=== PATIENT | female | born 1955 | race Caucasian/White ===

== ENCOUNTER 2018-07-07 10:11 | Day surgery (SDC) | payer MEDICARE, BC ==
[2018-07-05 11:32] LABS: CLARITY,URINE CLEAR (Clear); COLOR,URINE STRAW (Yellow); GLUCOSE, URINE NEGATIVE (Neg); KETONES,URINE NEGATIVE (Neg); LEUKOCYTE ESTERASE ,URINE SMALL (Neg); NITRITES, URINE NEGATIVE (Neg); OCCULT BLOOD,URINE NEGATIVE (Neg); PROTEIN,URINE NEGATIVE (Neg); UROBILINOGEN,URINE 0.2 E.U/dL (0.2-1.0)
[2018-07-05 11:39] LABS: UA COLLECTION TYPE CLN CATCH MIDSTREAM
[2018-07-05 11:41] LABS: PRE OP INR 0.9 INR; PRE OP PROTIME 9.2 SECONDS (9.0-12.0)
[2018-07-05 11:44] LABS: BASOPHILS # (AUTO) 0.1 X10'3 (0-0.2); BASOPHILS % (AUTO) 0.6 % (0-1); EOSINOPHILS # (AUTO) 0.4 X10'3 (0-0.9); EOSINOPHILS % (AUTO) 3.7 % (0-6); LYMPHOCYTES # (AUTO) 1.1 X10'3 (1.1-4.8); LYMPHOCYTES % (AUTO) 11.5 % (21-51); MEAN CORPUSCULAR HEMOGLOBIN 28.4 PG (27.0-31.0); MEAN CORPUSCULAR HGB CONC 33.5 % (33.0-36.5); MEAN CORPUSCULAR VOLUME 84.8 FL (78-98); MEAN PLATELET VOLUME 7.6 FL (7.4-10.4); MONOCYTES # (AUTO) 0.7 X10'3 (0-0.9); MONOCYTES % (AUTO) 7.3 % (2-12); NEUTROPHILS # (AUTO) 7.5 X10'3 (1.8-7.7); NEUTROPHILS % (AUTO) 76.9 % (42-75); PRE OP HEMATOCRIT 32.3 % (35.0-45.0); PRE OP PLATELET COUNT 197 X10'3 (140-440); RED CELL DISTRIBUTION WIDTH 15.4 % (11.5-14.5)
[2018-07-05 11:46] LABS: BACTERIA,URINE NONE SEEN /HPF (Neg); RBC,URINE NONE SEEN /HPF (0-2); SQUAMOUS EPITHELIAL CELL,UR FEW /LPF (FEW)
[2018-07-05 11:49] LABS: ALBUMIN 3.6 G/DL (3.4-5.0); ALBUMIN/GLOBULIN RATIO 0.9 (1.1-1.5); ALKALINE PHOSPHATASE 144 IU/L (46-116); BLOOD UREA NITROGEN 49 MG/DL (7-18); BUN/CREATININE RATIO 24.4 (6.6-38.0); CALCIUM 8.6 MG/DL (8.5-10.1); CHLORIDE 104 MMOL/L (99-107); CREATININE 2.01 MG/DL (0.40-0.90); PRE OP ALT 21 U/L (30-65); PRE OP ANION GAP 9 (8-16); PRE OP AST 14 U/L (10-37); PRE OP BILIRUB, TOTAL 0.3 MG/DL (0.0-1.0); PRE OP GLUCOSE 70 MG/DL (70-104); PRE OP POTASSIUM 4.3 MMOL/L (3.4-5.1); PRE OP SODIUM 141 MMOL/L (135-145); TOTAL CARBON DIOXIDE 27.6 MMOL/L (24-32); TOTAL PROTEIN 7.6 G/DL (6.4-8.2); eGFR 25 ML/MIN
[2018-07-05 11:51] LABS: PRE OP HEMOGLOBIN 10.8 g/dL (12.0-16.0)
[~2018-07-07] VITALS: Ht 167.6 cm; Wt 127.5 kg
[~2018-07-07 10:11] MED LIST: ASPI-845 PO; DOCUMENT DATE & TIME OF BETA-BLOCKER PO ONE; FURO80TA3 PO; LABE300T2 PO; LOSA100T15 PO; POTA8TAB8 PO; [UNRECOGNIZED DRUG - CODE] PO; ceFAZolin 2gm in dextrose, iso 100 ML IV ONE; cefazolin/dext.iso 2gm/100 ML IV ONE; famotidine 20mg tablet PO ONE; ringers solution, lacted 1,000 ML IV SCH
[2018-07-07 10:30] VITALS: BP 158/92
[2018-07-07] MEDS ORDERED: labetalol 100mg tablet PO ONE (10:40)
[2018-07-07] MEDS ORDERED: clindamycin phosphate 150mg/ml inj. ONE (11:55)
[2018-07-07] MEDS ORDERED: gentamicin 40 MG/1 ML inj ONE ×2 (11:55→12:22)
[2018-07-07] MEDS ORDERED: succinylcholine 20mg/ml inj IV ONE (12:24)
[2018-07-07] MEDS ORDERED: sevoflurane 250ml liquid IH ONE (12:24)
[2018-07-07] MEDS ORDERED: propofol 10mg/ml 20ml vial IV ONE (12:24)
[2018-07-07] MEDS ORDERED: fentaNYL/PF 50MCG/1 ML 2ML syringe ONE (12:40)
[2018-07-07] MEDS ORDERED: midazolam 2 mg/2 ml injection ONE (12:41)
[2018-07-07] MEDS ORDERED: LIDOcaine 2% (20mg/ml) 5ml vial ONE (12:52)
[2018-07-07] MEDS ORDERED: propofol inj 20 ML IV ONE (12:52)
[2018-07-07] MEDS ORDERED: rocuronium 10mg/ml inj IV ONE (12:52)
[2018-07-07] MEDS ORDERED: dexamethasone sod phosphate 4mg/ml inj. ONE (12:52)
[2018-07-07] MEDS ORDERED: BUPIVAcaine/PF 2.5mg/ml (0.25%) 10ml vial ONE (13:15)
[2018-07-07 13:28] VITALS: BP 98/56
[2018-07-07] MEDS ORDERED: morphine 4 MG/ML inj SYRINge ONE (13:30)
[2018-07-07] MEDS ORDERED: albuterol 2.5 MG/3 ML nebule NEB ONE (13:35)
[2018-07-07] MEDS ORDERED: ringers solution, lacted 1,000 ML IV SCH (13:37)
[2018-07-07 13:38] VITALS: BP 97/40
[2018-07-07] MEDS ORDERED: morphine 4 MG/ML inj SYRINge IV PRN (13:40)
[2018-07-07] MEDS ORDERED: ondansetron/PF 4mg/2ml inj IV PRN (13:40)
[2018-07-07] MEDS ORDERED: ipratropium/albuterol 3ml nebule ONE (13:42)
[2018-07-07] MEDS ORDERED: neostigmine methylsulfate 1 MG/ML 10ml vial ONE (13:45)
[2018-07-07] MEDS ORDERED: ondansetron/PF 4mg/2ml inj ONE (13:45)
[2018-07-07] MEDS ORDERED: glycopyrrolate 0.2mg/ml inj ONE (13:45)
[2018-07-07 13:48] VITALS: BP 91/66
[2018-07-07 13:58] VITALS: BP 151/84
[2018-07-07 14:08] VITALS: BP 142/57
[2018-07-07] MEDS ORDERED: ipratropium/albuterol 3ml nebule NEB ONE (16:00)
== END 2018-07-07 14:18 | disposition home or self-care (01) ==
LOC: PAS 10:11
PROVIDERS: ATTEND Surgery
DX: T81.4XXA Infection following a procedure, initial encounter (principal); L92.8 Other granulomatous disorders of the skin and subcutaneous tissue; F17.210 Nicotine dependence, cigarettes, uncomplicated; Z98.890 Other specified postprocedural states; I10 Essential (primary) hypertension; E78.2 Mixed hyperlipidemia; E66.9 Obesity, unspecified; Z68.42 Body mass index [BMI] 45.0-49.9, adult; Z90.49 Acquired absence of other specified parts of digestive tract; Z90.710 Acquired absence of both cervix and uterus; E89.0 Postprocedural hypothyroidism; Z79.01 Long term (current) use of anticoagulants; Z91.018 Allergy to other foods; Z88.5 Allergy status to narcotic agent; Z88.8 Allergy status to other drugs, medicaments and biological substances; Y83.8 Other surgical procedures as the cause of abnormal reaction of the patient, or of later complication, without mention of misadventure at the time of the procedure; Y92.89 Other specified places as the place of occurrence of the external cause
CPT/HCPCS: 11402; 36415; 71046; 80053; 81001; 85025; 85610; 85730; 87070; 87075; 87077; 87088; 87186; 93005; 94640; 94760; A6449; J0330; J0690; J1100; J1580; J2001; J2250; J2270; J2405; J2704; J2710; J3010; J3490; J7120; A7000